=== PATIENT | female | born 1995 | race Caucasian/White ===

== ENCOUNTER 2024-07-29 09:21 | Outpatient (AMB) | payer MEDICAID, SELFPAY ==
--- NOTE | 2024-07-29 09:37 | AMB.OBINITIA ---
Vital Signs 07/29/24 09:50 Height 1.65 m Height Method Stated Weight 98.486 kg Weight Measurement Method Standing Scale BMI 36.1 BP 125/77 Blood Pressure Source Automatic Cuff Blood Pressure Location Left Upper Arm Position Sitting Respiration 18 Pulse 112 H Pulse Source Monitor Temp 97.2 F Temp Source Oral Pulse Oximetry (%) 99 Oxygen Delivery Method Room Air Allergies/Home Meds Allergies & Medications Allergies No Known Allergies Allergy (Verified 07/29/24 09:40) Medication Reconciliation cholecalciferol (vitamin D3) 10 mcg (400 unit) capsule 10 mcg PO QDAY 30 days #30 caps 07/29/24 [Rx] metformin 1,000 mg tablet 1,000 mg PO BID 07/29/24 [History Confirmed 07/29/24] vits no.126-ferrous fum 28 mg iron-folic acid 800 mcg tablet (Classic ) 0.126 - 28 tab PO DAILY 30 days #60 tabs 07/29/24 [Rx] Intake Visit Data Collection New Patient or Established: New Patient (never been to [facility]) Reason for Visit:: OB TRANSFER , PATIENT WAS IN ER IN MAY AT [facility] , PATIENT IS HAVING CO ITCHING ALL OVER BODY Seen by Clinical Staff ONLY (RN/MA): No Gravity Prospecting Supervisor Required: No Do You Feel Safe at Home: Yes Authorities Contacted: N/A PCP or OBGYN visit in last 3 months: Yes Hx Now: Yes Are you currently on any form of Control: No Last menstrual period: 03/03/24 Pain Present Currently: No Pain Scale Used: Sosa-Gar/Numerical Pain scale:: 0 Smoking Status Smoking Status: Never smoker Questionnaires Covid-19 Vaccine Questionnaire Has patient been vacinated for Covid-19 Have you been vacinated for Covid-19: Yes PHQ-9 PHQ-2 Over the last 2 weeks, how often have you been bothered by any of the following problems? 1. Little interest or pleasure in doing things: not at all 2. Feeling down, depressed, or hopeless: not at all Total score: 0 PHQ-9 3. Trouble falling or staying asleep, or sleeping too much: Not at all 4. Feeling tired or having little energy: Not at all 5. Poor appetite or overeating: Not at all 6. Feeling bad about yourself - or that you are a failure or have let yourself or your family down: Not at all 7. Trouble concentrating on things, such as reading the newspaper or watching television: Not at all 8. Moving or speaking so slowly that other people could have noticed? - Or the opposite - being so fidgety or restless that you have been moving around a lot more than usual: not at all 9. Thoughts that you would be better off or of hurting yourself in some way: Not at all Total score: 0 If you checked off any problems, how difficult have these problems made it for you to do your work, take care of things at home, or get along with other people?: not difficult at all Source: Developed by Drs. Niall Cardona, Areli Mix, Sadiq Guzman and colleagues, with an educational stephanie from [employer]. Depression screen completed yes Social History Living Situation History Marital Status: Single Lives With: Family Housing: Condominium Tobacco History Smoking Status: Never smoker Second Hand Smoke Exposure: No Alcohol History Alcohol Intake: Never Domestic Abuse History Do You Feel Safe at Home: Yes Past Medical History Past Medical History Have you ever been diagnosed with any of the following: Endocrine Problems Diabetes Mellitus Type 2: Yes History of Present Illness HPI Narrative 29 yo for OBI. LMP 03/03/25. EDC 12/02/24. sure dates. primary c/s with first . patient wants . fetus active. no PTL complaintsType 2 DM, metformion 1000 bid. reports BS 84 prior to meals. post meal, 140. checks sugars 4 x daily. no social habit, no bleeding or sab complaints OB Initial Visit OB Flowsheet OB Flowsheet Initial Weight: Not Recorded Date <del>?</del> EGA Weight Edema CTX Effacement BP Fundal ht Pres Dilation Effacement Station Visit Note Alb Glu FHR Mov 07/29/24 <del>?</del> 21w 1d 98.486 kg absent absent 125/77 19 29 yo IUP 21w5 by dates for OBI. patient had bleeding early on and was seen at [facility],no records, no bleeding now. light FM. type 2 DM, Metformin 1000 bid. reports testing sugar qid and reports sugars in am prior to breakfast are 84, wants . schedule MFM in [place], continue metformin 1000 for now, review diet and weight control, increase fluid, PTL precaution, refill PNV and vitamin D bid. order panel, HA1c, TSH,CMP, RTC 2 week 29 yo IUP 21w5 by dates for OBI. patient had bleeding early on and was seen at [facility],no records, no bleeding now. light FM. type 2 DM, Metformin 1000 bid. reports testing sugar qid and reports sugars in am prior to breakfast are 84, wants . [facility], continue metformin 1000 for now, review diet and weight control, increase fluid, PTL precaution, refill PNV and vitamin D bid. order panel, HA1c, TSH,CMP, RTC 2 week, NIPT,carrier screen. 146 active Menstrual History Menstrual reliability: definite Flow: normal Menstrual regularity: regular Monthly: Yes Age at menarche: 12 On control pills at conception: No Associated symptoms (LMP): Reports fatigue and urinary frequency OB History : 3 Para: 2 Hx # Pregnancies: 0 Hx Total # of Abortions (Spontaneous & Elective): 0 # of Living Children: 2 Delivery History 1st : Child's name: SHEKHAR HARVEY date: 06/27/18 sex: male Delivery type: vaginal weight (lbs): 3175.147 g weight (oz): 340.194 g Delivery complications: NA History of depression before or after : No 2nd : Child's name: FRAN HARVEY date: 06/19/21 sex: female Delivery type: weight (lbs): 1814.369 g weight (oz): 340.194 g Delivery complications: SAC WAS AGING , BABY WASNT GROWING AFTER 34 WEEKS History of depression before or after : Yes Infection History & Risk Evaluation History of STDs: none HIV risk evaluation: low risk Hepatitis B risk evaluation: low risk Patient or partner has history of Genital Herpes: No Varicella/chicken pox status: immunized Genetic Screening & History Genetic Screening/Teratology Counseling - Includes patient, baby's father, or anyone in either family with: 1. Patient's age 35 years or older as of estimated date of delivery: No 2. Thalassemia (Indonesian, Tajik, Mediterranean, or Background); MCV less than 80: No 3. Neural Tube Defect (Meningomyelocele, Spina Bifida, or Anencephaly): No 4. Congenital Heart Defect: No 5. Down Syndrome: No 6. Agustin-Sachs (Ashkenazi Catholic, Cajun, Bengali New Zealander): No 7. Salvador Disease (Ashkenazi Catholic): No 8. Familial Dysautonomia (Ashkenazi Catholic): No 9. Sickle Cell Disease or Trait (): No 10. Hemophilia or other blood disorders: No 11. Muscular Dystrophy: No 12. Cystic Fibrosis: No 13. Odilia's Chorea: No 14. Mental Retardation/Autism: No 15. Other inherited genetic or chromosomal disorder: No 16. Maternal Metabolic Disorder (EG,TYPE 1 Diabetes, PKU): No 17. Patient or baby's father had a child with defects not listed above: No 18. Recurrent loss or a stillbirth: No 19. Medications (including supplements, vitamins, herbs or otc drugs)/illicit/recreational drugs/alcohol since last menstrual period: No 20. Any other: No Infection History 1. Live with someone with TB or exposed to TB: No 2. Rash or viral illness since last menstrual period: No 3. Hepatitis B,C: No Other (see comments) Source: [employer] Review of Systems Review of Systems Systems Reviewed: All systems reviewed, normal except as documented Constitutional Constitutional: Reports fatigue Genitourinary Genitourinary: Reports urinary frequency Endocrine Endocrine: Reports fatigue Exam General Limitations: no limitations General Appearance: alert, in no apparent distress, comfortable, cooperative, healthy appearing, well developed and well groomed Head Head exam: atraumatic, normocephalic and normal inspection Chest Chest inspection: Present normal inspection and symmetric chest wall rise Resp Respiratory exam: Present normal lung sounds bilaterally Card Cardiovascular exam: Present regular rate, normal rhythm and normal heart sounds Abdominal Abdominal exam: Present soft and normal bowel sounds Psych Psychiatric exam: Present normal affect and normal mood Assessment & Plan Diagnosis / Problem List (1) Encounter for supervision of normal in multigravida in second trimester: Status: Acute (2) Previous section complicating : Status: Acute (3) Diabetes in : Status: Acute Plan continue Metformin 1000 bid, order PNV and vitamin D. discuss Diabetic diet, walk 40 minute daily, continue to monitor sugars, schedule MFM sono, OB panel, UA,UT, HA1c, TSH, CMP, GC/CT, NIPT,carrier screen. RTC OBC Additional Plan Follow Up: 2 Weeks (obc) Office Procedures OB Clinic LOC & Office Proc's Nursing/Assessment Patient Status: Initial/New Patient OB Clinic Nursing Assessment: BP Monitoring, Medication Reconciliation, Update PMH in EMR and Vital Signs OB Clinic Coordination of Care: Consent,records obtained, informed consent, Education Simp Pt/Fam, Lab and Imaging orders and Staff clarify orders Special Needs: Heart tones New Patient Charge New Patient Point Assignment: [id number] New Patient Point Charge: DEVULCANIZER LOADER Level 4 ([id number])
[2024-07-29 09:50] VITALS: BP 125/77; PULSE 112; RESP 18; TEMP 36.2; O2SAT 99; BMI 36.1
[2024-07-29 10:41] LABS: Bilirubin,Urine Clinitek Negative (Negative); Blood,Urine Clinitek Negative (Negative); Glucose, Urine Clinitek Negative (Negative); Ketones,Urine Clinitek Negative (Negative); Leukocyte Esterase,Urine Clin Negative (Negative); Nitrite,Urine Clinitek Negative (Negative); PH,Urine Clinitek 7.5 (5.0-7.0); Protein,Urine Clinitek Negative (Neg - Trace); Specific Gravity,Urine Clin 1.025 (1.001-1.030); Urobilinogen,Urine Clinitek 0.2 mg/dL (0.0-1.0)
== END 2024-07-29 10:13 | disposition home or self-care (01) ==
LOC: HODSOBC 09:21
PROVIDERS: PCP Internal Medicine; Referring Provider Internal Medicine; Supervising Provider Advanced Practice Midwife; Visit Provider Advanced Practice Midwife
DX: O09.292 Supervision of pregnancy with other poor reproductive or obstetric history, second trimester (principal); Z3A.21 21 weeks gestation of pregnancy; O34.219 Maternal care for unspecified type scar from previous cesarean delivery; O09.892 Supervision of other high risk pregnancies, second trimester; O24.415 Gestational diabetes mellitus in pregnancy, controlled by oral hypoglycemic drugs
CPT/HCPCS: 81001; 99204; G0463